=== PATIENT | male | born 1985 | race Caucasian/White ===

== ENCOUNTER 2019-01-20 08:25 | Emergency (ER) | payer SELFPAY ==
[~2019-01-20] VITALS: Ht 188 cm; Wt 100.0 kg
[2019-01-20 08:29] VITALS: BP 137/85; PULSE 67; RESP 18; Ht 188 cm; Wt 100.0 kg
--- NOTE | 2019-01-20 11:16 | ERD ---
ER Documentation Chief Complaint Chief Complaint pt is bib self with c/o right ear pain upon waking up this am HPI This is a 33-year-old male who woke up with right-sided ear pain and decreased hearing in the right ear. No bleeding or drainage from the ear. No fever. No recent illness. ROS All systems reviewed and are negative except as per history of present illness. Allergies Allergies: Coded Allergies: No Known Allergy (Unverified , 01/20/19) PMhx/Soc Medical and Surgical Hx: pt denies Medical Hx, pt denies Surgical Hx Hx Alcohol Use: No Hx Substance Use: No Hx Tobacco Use: No Smoking Status: Never smoker FmHx Family History: No diabetes Physical Exam Vitals Vital Signs Date Temp Pulse Resp B/P (MAP) Pulse Ox O2 O2 Flow FiO2 Time Delivery Rate 01/20/19 98.6 67 18 137/85 98 08:29 (102) Physical Exam Const: No acute distress Head: Atraumatic Eyes: Normal Conjunctiva ENT: Left ear within normal limits, right ear unable to visualize tympanic membrane secondary to cerumen impaction Neck: Full range of motion. No meningismus. Resp: Clear to auscultation bilaterally Cardio: Regular rate and rhythm, no murmurs Procedures/MDM Patient has cerumen impaction. Ear lavage was performed. After the ear lavage I attempted to look at the patient's here to evaluate for infection or other process however patient was unable to be located and therefore likely eloped. Departure Diagnosis: Primary Impression: Cerumen impaction Additional Impression: Otalgia Condition: Stable SUSANNE TELLO PA-C Jan 20, 2019 11:16
== END 2019-01-20 11:42 | disposition home or self-care (01) ==
LOC: FTE 08:25
DX: H61.21 Impacted cerumen, right ear (principal)